=== PATIENT | male | born 1990 | race Caucasian/White ===

== ENCOUNTER 2016-12-12 13:03 | Emergency (ER) | payer OTHER ==
[~2016-12-12] VITALS: Ht 185.4 cm; Wt 71.7 kg
[~2016-12-12 13:03] MED LIST: SOMA 350MG TAB350 MG PO; VITAMIN B1100 MCG/ML SL
[2016-12-12 13:13] VITALS: BP 170/78
--- NOTE | 2016-12-12 13:28 | ED ANKLE/FOOT INJURY COMPLAINT ---
History of Present Illness General Chief Complaint: Foot or Ankle Injury Stated Complaint: LT GREAT TOE PAIN Source: patient Exam Limitations: no limitations Vital Signs & Intake/Output Vital Signs & Intake/Output Vital Signs Date Time Temp Pulse Resp B/P B/P Pulse O2 O2 Flow FiO2 Mean Ox Delivery Rate 12/12 1313 99.0 58 18 170/78 98 Room Air Allergies Coded Allergies: NO KNOWN ALLERGIES (12/12/16) Triage Note: PT STATES THAT HE FELL LAST PM WHILE HIKING COMPLAINS OF L GREAT TOE PAIN. TOOK MOTRIN LAST PM. REFUSED MED AT TRIAGE Triage Nurses Notes Reviewed? yes Occurred: yesterday Duration: day(s): (1) Timing: no prior history Severity: moderate Severity Numbers: 7 Pain/Injury Location: Left: 1st toe. Method of Injury: stubbed, twisted Modifying Factors: Improves With: immobilization. Worsens With: movement. HPI: Patient is a 26-year-old male presenting to the emergency department with chief complaint of left great toe pain that's been going on since yesterday after he stubbed it while walking on a log in the [facility]. Pain is achy throbbing. He noticed increased swelling and bruising so he decided to come in for evaluation. Denies any numbness or tingling. No radiation of the pain. Has been taking Motrin with little relief. Patient also takes marijuana for complex regional pain disorder. Denies any other injury. No head injury. (CASSANDRA MCGARRY) Reconcile Medications Meloxicam (Mobic) 15 MG TABLET 1 TAB PO DAILY PRN PAIN/INFLAMMATION (KARINA CHUNG,WALI You) Past History Travel History Traveled to [place] past 21 day No Medical History Any Pertinent Medical History? 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 No (CASSANDRA MCGARRY) Review of Systems Review of Systems Constitutional: Reports: no symptoms. Comments Review of systems: See HPI, All other systems negative. Constitutional, no chills fever or weight loss HEENT: No visual changes no sore throat no congestion Cardiovascular: No chest pain Skin, no jaundice no rashes Respiratory: No dyspnea cough GI: No nausea no vomiting Muscle skeletal: no back pain, no neck pain, Neurologic: No numbness Psych: No stress anxiety Immunology: No splenectomy or history of AIDS (CASASNDRA MCGARRY) Physical Exam Physical Exam General Appearance: well developed/nourished, no apparent distress, alert, awake , comfortable Leg/Knee/Thigh Left: normal range of motion, normal inspection Comments: Well-developed well-nourished no apparent distress. HEENT: Atraumatic, extraocular motion intact Neck: Normal inspection Back: Nontender Respiratory: No respiratory distress Extremities: Mild edema and ecchymosis noted over the left great toe from the base to the distal tip. No nail involvement. Limited range of motion of the left great toe secondary to pain. Pedal pulses are 2+ bilaterally. Neuro: Alert and oriented x3 Psych: Mood affect normal, normal memory normal judgment. (CASSANDRA MCGARRY) Progress Differential Diagnosis: fracture, dislocation, sprain, contusion Plan of Care: Orders Procedure Date/time Status XRY-TOES, LEFT 12/12 1317 Active Current Medications Sig/Calin Start time Last Medication Dose Stop Time Status Admin Ketorolac 30 MG ONCE ONE 12/12 1330 CAN Tromethamine 12/12 1331 (Toradol) Diagnostic Imaging: Viewed by Me: Radiology Read. Radiology Impression: FRACTURE OF THE PROXIMAL ASPECT OF THE DISTAL PHALANX ON THE LEFT GREAT TOE- NONDISPLACED (CASSANDRA MCGARRY) Departure Departure Time of Disposition: 1350 Disposition: HOME OR SELF CARE Condition: Stable Clinical Impression Primary Impression: Toe fracture Qualifiers: Encounter type: initial encounter Toe: great toe Fracture type: closed Phalanx: distal Fracture alignment: nondisplaced Laterality: left Qualified Code: S92.425A - Nondisplaced fracture of distal phalanx of left great toe, initial encounter for closed fracture Referrals: PATIENT HAS NO PRIMARY CARE DR Additional Instructions: Follow-up with an orthopedic in [place]. Continue to rest ice and elevate. Return for worsening symptoms or concerns. Departure Forms: Customer Survey General Discharge Information Prescriptions: Current Visit Scripts Meloxicam (Mobic) 1 TAB PO DAILY PRN PAIN/INFLAMMATION #30 TAB (MARIA C PEACOCK,CASSANDRA) PA/BIAS CUTTER Co-Sign Statement Statement: ED Attending supervision documentation- [] I saw and evaluated the patient. I have also reviewed all the pertinent lab results and diagnostic results. I agree with the findings and the plan of care as documented in the PA's/BIAS CUTTER's documentation. [X] I have reviewed the ED Record and agree with the PA's/BIAS CUTTER's documentation. [] Additions or exceptions (if any) to the PAs/BIAS CUTTER's note and plan are summarized below: [] (KARINA CHUNG,WALI You)
[2016-12-12] MEDS ORDERED: MOBIC15 M1 PO (13:54)
--- NOTE | 2016-12-12 14:12 | RADIOLOGY REPORT ---
EXAMINATION: XR TOES, LEFT CLINICAL INFORMATION: Fall with left great toe pain COMPARISON: None TECHNIQUE: 3 views of the left toes were obtained. FINDINGS: There is a nondisplaced intra-articular fracture at the base of the first digit distal phalanx. Joint spaces are maintained. Soft tissue swelling is present. Alignment is anatomic. IMPRESSION: Nondisplaced fracture at the base of the first digit distal phalanx.
== END 2016-12-12 14:00 ==
LOC: ERH 13:03
DX: S92.425A Nondisplaced fracture of distal phalanx of left great toe, initial encounter for closed fracture (principal); W22.8XXA Striking against or struck by other objects, initial encounter; Y93.01 Activity, walking, marching and hiking; Y92.821 Forest as the place of occurrence of the external cause
CPT/HCPCS: 73660-LT

== ENCOUNTER 2017-12-24 11:41 | Emergency (ER) | payer OTHER ==
[~2017-12-24] VITALS: Ht 185.4 cm; Wt 74.8 kg
[~2017-12-24 11:41] MED LIST changes: +MOBIC15 M1 PO
[2017-12-24 11:47] VITALS: BP 144/90
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
--- NOTE | 2017-12-24 12:56 | RADIOLOGY REPORT ---
EXAMINATION: XR FOOT, RIGHT CLINICAL INFORMATION: Right foot pain COMPARISON: None TECHNIQUE: AP, lateral, and oblique views of the right foot. FINDINGS: There is no evidence of fracture or dislocation. Alignment is anatomic. Joint spaces are maintained. No radiopaque foreign bodies in the soft tissues. IMPRESSION: No fracture or dislocation.
== END 2017-12-24 13:20 ==
LOC: ERH 11:41
DX: S90.31XA Contusion of right foot, initial encounter (principal); W20.8XXA Other cause of strike by thrown, projected or falling object, initial encounter; Y92.9 Unspecified place or not applicable; Y93.9 Activity, unspecified
CPT/HCPCS: 73630-RT